=== PATIENT | female | born 1970 | race Caucasian/White ===

== ENCOUNTER 2016-10-04 13:28 | Emergency (ER) | payer MEDICAID, OTHER ==
[~2016-10-04] VITALS: Ht 157.5 cm; Wt 51.3 kg
[2016-10-04] MEDS ORDERED: FLUORESCEIN OPHTHALMIC 1 MG STRIP ONE (13:51)
[2016-10-04] MEDS ORDERED: PROPARACAINE OPHTH 0.5%, 15ML ONE (13:51)
[2016-10-04] MEDS ORDERED: PROPARACAINE OPHTH 0.5%, 15ML EACHEYE ONE (14:00)
[2016-10-04] MEDS ORDERED: FLUORESCEIN OPHTHALMIC 1 MG STRIP EACHEYE ONE (14:00)
[2016-10-04] MEDS ORDERED: CLINDAMYCIN PMX 600MG/50ML 50 ML IV ONE (14:00)
[2016-10-04] MEDS ORDERED: CLINDAMYCIN PMX 600MG/50ML 50 ML ONE (14:48)
[2016-10-04] MEDS ORDERED: AMPH15TA PO (15:02)
[2016-10-04 15:55] VITALS: BP 114/80
[2016-10-04] MEDS ORDERED: OMNIPAQUE 350 MG/ML, 75ML BOTTLE ONE (17:14)
== END 2016-10-04 16:47 | disposition home or self-care (01) ==
LOC: ED 14:11
DX: L03.213 Periorbital cellulitis (principal); Z88.1 Allergy status to other antibiotic agents
CPT/HCPCS: 36415; 70481; 80047; 96365; 99285; Q9967

== ENCOUNTER 2018-07-09 15:47 | Emergency (ER) | payer MEDICAID ==
[~2018-07-09] VITALS: Ht 157.5 cm; Wt 49.7 kg
[~2018-07-09 15:47] MED LIST: AMPH15TA PO
[2018-07-09 15:59] VITALS: BP 155/97
== END 2018-07-09 16:30 | disposition home or self-care (01) ==
LOC: ED 16:22
DX: K04.6 Periapical abscess with sinus (principal)
CPT/HCPCS: 99283